=== PATIENT | female | born 1935 | race Caucasian/White ===

== ENCOUNTER 2024-06-26 17:18 | Emergency (ER) | payer MEDICARE | END 2024-06-26 22:19 | LOC: MADERS 17:18 | DX: S32.119A Unspecified Zone I fracture of sacrum, initial encounter for closed fracture (principal); S32.19XA Other fracture of sacrum, initial encounter for closed fracture; S00.83XA Contusion of other part of head, initial encounter; S00.511A Abrasion of lip, initial encounter; S00.31XA Abrasion of nose, initial encounter; I10 Essential (primary) hypertension; Z86.73 Personal history of transient ischemic attack (TIA), and cerebral infarction without residual deficits; Z91.81 History of falling; Z79.899 Other long term (current) drug therapy; W18.30XA Fall on same level, unspecified, initial encounter | CPT/HCPCS: 70450; 71250; 72125; 74177 ==